=== PATIENT | male | born 1955 | race African-American/Black ===

== ENCOUNTER 2017-04-22 13:31 | Observation (INO) | payer MEDICAID, OTHER ==
[~2017-04-22] VITALS: Ht 188 cm; Wt 91.4 kg
[2017-04-22 13:45] VITALS: BP 179/81; PULSE 92; RESP 14; TEMP 97.9; O2SAT 95
[2017-04-22] MEDS ORDERED: TAMS0.4C4 PO (15:08)
[2017-04-22] MEDS ORDERED: NAPR250T4 PO (15:08)
[2017-04-22] MEDS ORDERED: KETOROLAC TROMETHAMINE 30 MG/ML (IVP) VIAL IV PUSH ONE (16:15)
[2017-04-22] MEDS ORDERED: HYDROmorphone HCL PF 2 MG/ML VIAL IV PUSH ONE (16:15)
--- NOTE | 2017-04-22 16:51 | PD ---
HPI Chief Complaint: Back/ Neck Pain or Injury Time Seen by Provider: 15:58 Travel History International Travel<30 days: No Contact w/Intl Traveler<30days: No Traveled to known affect area: No History of Present Illness HPI This is a 62-year-old male who presents to the emergency department with 4 days of left-sided low back pain, constant, severe, nonradiating, worse with movement and improved with rest. He says he's never had pain like this before. He does suffer from arthritis in his knees and his shoulders for which she takes naproxen but he hasn't had much relief. He denies any numbness or weakness and denies any bowel or bladder incontinence. He does have an enlarged prostate making his stream difficult but he is taking medication for this. PFSH Past Medical History Arthritis: Yes (KNEES, SHOULDERS, RIGHT HIP ) Medical other: Yes (PROSTATE ) Past Surgical History Other Surgery: Yes (KNEE SURGERY ) Social History Alcohol Use: Yes (STATES HE DRINKS A LITTLE ) Tobacco Use: Yes (1/2 PACK A DAY ) Substance Use: No Allergies-Medications (Allergen,Severity, Reaction): Coded Allergies: No Known Allergies (Verified Allergy, Unknown, 04/22/17) Reported Meds & Prescriptions Reported Meds & Active Scripts Active Reported Tamsulosin (Tamsulosin HCl) 0.4 Mg Cap 0 PO HS Naproxen 250 Mg Tab 250 Mg PO BID Review of Systems Except as stated in HPI: all other systems reviewed are Neg Physical Exam Narrative GENERAL:Well appearing, no acute distress SKIN: Focused skin assessment warm and dry. HEAD: Atraumatic. Normocephalic. EYES: Pupils equal and round. No injection or drainage. ENT: Moist mucous membranes NECK: Trachea midline. CARDIOVASCULAR: Regular rate and rhythm. No murmur appreciated. Feet are warm with normal capillary refill. RESPIRATORY: Clear to auscultation. Breath sounds equal bilaterally. GASTROINTESTINAL: Abdomen soft, non-tender, nondistended. MUSCULOSKELETAL: Pain with leg raise of both the right and the left leg. Tender to palpation over the lumbar paraspinal muscles on the left. NEUROLOGICAL: Awake and alert. No obvious cranial nerve deficits. 5 out of 5 strength in the bilateral lower extremities. PSYCHIATRIC: Appropriate mood and affect; insight and judgment normal. Data Data Last Documented VS Vital Signs Date Time Temp Pulse Resp B/P (MAP) Pulse Ox O2 Delivery O2 Flow Rate FiO2 04/22/17 13:45 97.9 92 14 179/81 (113) 95 Orders Orders Complete Blood Count With Diff (04/22/17 16:06) Comprehensive Metabolic Panel (04/22/17 16:06) ^ Insert Iv (04/22/17 16:06) Ketorolac Inj (Toradol Inj) (04/22/17 16:15) Hydromorphone Pf Inj (Dilaudid Pf Inj) (04/22/17 16:15) Ct Abd/Pel W/O Iv Contrast (04/22/17 ) Ct Lumb Spine W/O Contrast (04/22/17 ) MDM Medical Decision Making Medical Screen Exam Complete: Yes Emergency Medical Condition: Yes Interpretation(s) Afebrile, mild tachycardia, hypertensive Differential Diagnosis Herniated disc, degenerative disc disease, sacroiliitis, kidney stone, compression fracture, malignancy Narrative Course This is a 62-year-old male who presents to the emergency department with severe low back pain that's been worsening over the past 3 days. He has no red flags for cauda equina syndrome. He was placed on a monitor and an IV was established. Labs will be obtained and he will be given pain control. CT imaging will be obtained of the low back as well as the abdomen and pelvis to evaluate for possible kidney stone although his pain seems more musculoskeletal to me. If the patient's pain is persistent he may require observation for pain control and physical therapy evaluation Coni Wolf MD Apr 22, 2017 16:51
[2017-04-22 16:59] LABS: AUTOMATED NEUTROPHIL # 2.4 TH/MM3 (1.8-7.7); BASOPHIL % 0.4 % (0.0-2.0); EOSINOPHIL % 0.2 % (0.0-4.0); HEMATOCRIT 42.6 % (39.0-51.0); HEMOGLOBIN 14.6 GM/DL (13.0-17.0); LYMPH % 24.1 % (9.0-44.0); MEAN CELL VOLUME 99.4 FL (80.0-100.0); MEAN CORPUSCULAR HEMOGLOBIN 34.1 PG (27.0-34.0); MEAN CORPUSCULAR HGB CONC 34.3 % (32.0-36.0); MEAN PLATELET VOLUME 8.9 FL (7.0-11.0); MONO % 13.4 % (0.0-8.0); MONOCYTE # 0.5 TH/MM3 (0-0.9); NEUT % 61.9 % (16.0-70.0); PLATELET COUNT 150 TH/MM3 (150-450); RED BLOOD COUNT 4.29 MIL/MM3 (4.50-5.90); RED CELL DISTRIBUTION WIDTH 13.7 % (11.6-17.2)
[2017-04-22 17:16] LABS: ALBUMIN 3.7 GM/DL (3.4-5.0); AST (GOT) 45 U/L (15-37); BICARBONATE 30.5 MEQ/L (21.0-32.0); BLOOD UREA NITROGEN 12 MG/DL (7-18); CHLORIDE 102 MEQ/L (98-107); CREATININE 0.84 MG/DL (0.60-1.30); GLOMERULAR FILTRATION RATE 112 ML/MIN (>89); GLUCOSE,RANDOM 97 MG/DL (74-106); SODIUM (NA) 138 MEQ/L (136-145)
[2017-04-22 17:19] LABS: ALKALINE PHOSPHATASE 55 U/L (45-117); ALT (GPT) 34 U/L (12-78); TOTAL BILIRUBIN ADULT 1.2 MG/DL (0.2-1.0); TOTAL PROTEIN 8.6 GM/DL (6.4-8.2)
--- NOTE | 2017-04-22 17:27 | RADRPT ---
EXAM DATE/TIME: 04/22/2017 17:06 [facility] COMPARISON: No previous studies available for comparison. INDICATIONS : Left flank and left low back pain. ORAL CONTRAST: No oral contrast ingested. RADIATION DOSE: 13.88 CTDIvol (mGy) MEDICAL HISTORY : None SURGICAL HISTORY : None. ENCOUNTER: Initial ACUITY: 4 - 6 days PAIN SCALE: 10/10 LOCATION: Left flank TECHNIQUE: Volumetric scanning of the abdomen and pelvis was performed. Using automated exposure control and ad justment of the mA and/or kV according to patient size, radiation dose was kept as low as reasonably achievable to obtain optimal diagnostic quality images. DICOM format image data is available electro nically for review and comparison. FINDINGS: CT Abdomen: The liver, spleen, pancreas, kidneys, adrenals are unremarkable. There is no evidence for any stones in the kidneys or the course of the ureters on either side. There is no hydronephrosis.Th ere is no evidence for any appreciable pathological adenopathy, free fluid, or bowel obstruction. 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 Questionable gallstone s are present. CT pelvis: There is no evidence for mass, abscess formation, or any significant adenopathy within the pelvis. The prostate gland is inhomogeneous and measures 4.2 x 5.0 cm in AP and transverse diameters and nonspecific. Subcentimeter bone island is present in the left ischium. There are degenerative ch anges and possible bulging discs in the lower lumbosacral spine not adequately characterized. CONCLUSION: Possible gallstones. Harrison Bowling MD on April 22, 2017 at 17:21 Board Certified Radiologist. This report was verified electronically.
--- NOTE | 2017-04-22 17:44 | RADRPT ---
EXAM DATE/TIME: 04/22/2017 17:06 [facility] COMPARISON: No previous studies available for comparison. INDICATIONS : Left low back pain. RADIATION DOSE: ; Reconstructed from previous dataset, no dose MEDICAL HISTORY : None SURGICAL HISTORY : None. ENCOUNTER: Initial ACUITY: 4 - 6 days PAIN SCALE: 10/10 LOCATION: Left low back TECHNIQUE: Volumetric scanning of the lumbar spine was performed. Multiplanar reconstructions in the sagittal, coronal and oblique axial planes were performed. Using automated exposure control and adjustment of the mA and/or kV according to patient size, radiation dose was kept as low as reasonably achievable t o obtain optimal diagnostic quality images. DICOM format image data is available electronically for review and comparison. FINDINGS: No significant compression deformities, spondylolisis, or spondylolesthesis is seen. L1 transverse pr ocess on the right side appears not fused on a congenital basis. Moderate degree of facet hypertrophy is present at L4-5 and L5-S1 bilaterally. T12-L1: There is no evidence for any significant compromise to the thecal sac, or the exiting nerve roots. N o appreciable thecal sac stenosis is seen. The neural foramina and lateral recess appear patent bila terally. L1-L2: There is no evidence for any significant compromise to the thecal sac, or the exiting nerve roots. N o appreciable thecal sac stenosis is seen. The neural foramina and lateral recess appear patent bila terally. L2-L3: There is no evidence for any significant compromise to the thecal sac, or the exiting nerve roots. N o appreciable thecal sac stenosis is seen. The neural foramina and lateral recess appear patent bila terally. L3-L4: There is no evidence for any significant compromise to the thecal sac, or the exiting nerve roots. N o appreciable thecal sac stenosis is seen. The neural foramina and lateral recess appear patent bila terally. L4-L5: There is slight neural foramina compromise bilaterally due to bulging disc and hypertrophic changes. Slight bulging disc and hypertrophic changes are seen with indentation on the thecal sac and no signi ficant compromise to the thecal sac. L5-S1: There is slight neural foramina compromise bilaterally due to bulging disc and hypertrophic changes. Slight bulging disc and hypertrophic changes are seen with indentation on the thecal sac and no signi ficant compromise to the thecal sac. CONCLUSION: Slight neural foramina compromise bilateral L4-5 and bilateral L5-S1 without any significant thecal s ac stenosis. Harrison Bowling MD on April 22, 2017 at 17:37 Board Certified Radiologist. This report was verified electronically.
[2017-04-22] MEDS ORDERED: CYCLOBENZAPRINE HCL 10 MG TAB PO ONE (18:30)
[2017-04-22] MEDS ORDERED: NALOXONE HCL 0.4 MG/ML AMP IV PUSH PRN (18:45)
[2017-04-22 20:00] VITALS: BP 136/70; PULSE 82; RESP 21; TEMP 96.2; O2SAT 94
--- NOTE | 2017-04-22 20:00 | PD ---
Physical Exam Narrative Patient signed out to by Dr. Wolf. Please see her documentation for complete details. Briefly, Patient is a 62-year-old male who comes in complaining of left-sided pain started 3 days ago, suddenly. He denies any known injury. He was given pain medicine prior to my arrival, but he says this is not helping. Exam shows tenderness to the left sacroiliac area. Data Data Last Documented VS Vital Signs Date Time Temp Pulse Resp B/P (MAP) Pulse Ox O2 Delivery O2 Flow Rate FiO2 04/22/17 17:45 16 04/22/17 13:45 97.9 92 179/81 (113) 95 Orders Orders Complete Blood Count With Diff (04/22/17 16:06) Comprehensive Metabolic Panel (04/22/17 16:06) ^ Insert Iv (04/22/17 16:06) Ketorolac Inj (Toradol Inj) (04/22/17 16:15) Hydromorphone Pf Inj (Dilaudid Pf Inj) (04/22/17 16:15) Ct Abd/Pel W/O Iv Contrast (04/22/17 ) Ct Lumb Spine W/O Contrast (04/22/17 ) Cyclobenzaprine (Flexeril) (04/22/17 18:30) Admit Order (Ed Use Only) (04/22/17 ) Place In Observation (04/22/17 ) Vital Signs (Adult) Q4H (04/22/17 18:39) Activity Oob With Assistance (04/22/17 18:39) Bilingual Office Assistant / Telemetry .CONTINUOUS (04/22/17 18:39) Diet Heart Healthy (04/22/17 Dinner) Sodium Chloride 0.9% Flush (Ns Flush) (04/22/17 18:45) Sodium Chloride 0.9% Flush (Ns Flush) (04/22/17 21:00) Pt Request For Service (04/22/17 18:39) Case Management Consult (04/22/17 18:39) Naloxone Inj (Narcan Inj) (04/22/17 18:45) Labs Laboratory Tests Test 04/22/17 14:20 White Blood Count 4.0 TH/MM3 Red Blood Count 4.29 MIL/MM3 Hemoglobin 14.6 GM/DL Hematocrit 42.6 % Mean Corpuscular Volume 99.4 FL Mean Corpuscular Hemoglobin 34.1 PG Mean Corpuscular Hemoglobin Concent 34.3 % Red Cell Distribution Width 13.7 % Platelet Count 150 TH/MM3 Mean Platelet Volume 8.9 FL Neutrophils (%) (Auto) 61.9 % Lymphocytes (%) (Auto) 24.1 % Monocytes (%) (Auto) 13.4 % Eosinophils (%) (Auto) 0.2 % Basophils (%) (Auto) 0.4 % Neutrophils # (Auto) 2.4 TH/MM3 Lymphocytes # (Auto) 1.0 TH/MM3 Monocytes # (Auto) 0.5 TH/MM3 Eosinophils # (Auto) 0.0 TH/MM3 Basophils # (Auto) 0.0 TH/MM3 CBC Comment DIFF FINAL Differential Comment Blood Urea Nitrogen 12 MG/DL Creatinine 0.84 MG/DL Random Glucose 97 MG/DL Total Protein 8.6 GM/DL Albumin 3.7 GM/DL Calcium Level 9.0 MG/DL Alkaline Phosphatase 55 U/L Aspartate Amino Transf (AST/SGOT) 45 U/L Alanine Aminotransferase (ALT/SGPT) 34 U/L Total Bilirubin 1.2 MG/DL Sodium Level 138 MEQ/L Potassium Level 3.8 MEQ/L Chloride Level 102 MEQ/L Carbon Dioxide Level 30.5 MEQ/L Anion Gap 6 MEQ/L Estimat Glomerular Filtration Rate 112 ML/MIN MDM Supervised Visit with KAREEM: No Narrative Course CT abdomen and pelvis as well as lumbar spine show no acute abnormalities, no reason for his pain. Patient states he is unable to walk. He refuses to get out of bed to try. He'll be admitted for intractable back pain. Diagnosis Primary Impression: Intractable back pain Admitting Information Admitting Physician Requests: Rosemarie Bentley MD Apr 22, 2017 20:00
[2017-04-22] MEDS ORDERED: MORPHINE SULFATE 2 MG/ML INJ IV PUSH PRN (20:30)
[2017-04-22] MEDS: SODIUM CHLORIDE 0.9% FLUSH 10 ML FLUSH IV FLUSH SCH (20:52)
[2017-04-22] MEDS: ACETAMINOPHEN/HYDROcodone 325 MG/7.5 MG TAB PO PRN (20:52)
--- NOTE | 2017-04-22 21:51 | HHI.HP ---
[facility] Service [facility] Primary Care Physician Israel Sumner MD Admission Diagnosis Intractable back pain, inability to walk Diagnoses: Chief Complaint: intractable low back pain Travel History International Travel<30 Days: No Contact w/Intl Traveler <30 Da: No Traveled to Known Affected Are: No History of Present Illness 62-year-old male with history of multiple joint osteoarthritis, BPH, tobacco use , presents with a four-day history of low back pain. Patient reports he has had this similar low back pain a few times in the past, most recently one year ago. He denies any prior trauma or injury to his lower back. He states approximately four days ago he woke up with the pain located at his left lumbar region with radiation into the left lateral hip, described as constant 10/10 throbbing pains, increases to a 13/10 sharp stabbing pain with any movement. Denies any distal lower extremity numbness, tingling, or weakness. He denies any saddle anesthesia or bladder/bowel incontinence. Denies any fevers or IV drug use. He states he walks with a cane at baseline due to his right hip arthritis however he has not been able to ambulate well over the past few days due to the pain. He has been taking naproxen that he was prescribed while in alf with no relief of pain. A friend told him that this could be gas pain so he started taking [id number] gas relief medications with no relief. He denies any abdominal pain, nausea/vomiting, or diarrhea/constipation. Since his arrival to the ER, CT abdomen/pelvis shows possible gallstones, and lumbar spine CT shows slight neural foraminal compromise bilaterally L4-5 and L5-S1 without any significant thecal sac stenosis. He was given Toradol, Dilaudid, and Flexeril in the ER however was still unable to ambulate therefore admitted to observation. Review of Systems Except as stated in HPI: all other systems reviewed are Neg Past Family Social History Past Medical History Osteoarthritis of knees, shoulders, and right hip BPH Past Surgical History Left knee arthroscopy 2 Right knee arthroscopy 1 Reported Medications Tamsulosin (Tamsulosin HCl) 0.4 Mg Cap 0 PO HS Naproxen 250 Mg Tab 250 Mg PO BID Allergies: Coded Allergies: No Known Allergies (Verified Allergy, Unknown, 04/22/17) Active Ordered Medications Current Medications Medications (Trade) Dose Ordered Sig/Loren Route Start Time Stop Time Status Last Admin (NS Flush) 2 ml UNSCH PRN IV FLUSH 04/22/17 18:45 (NS Flush) 2 ml BID IV FLUSH 04/22/17 21:00 04/22/17 20:52 (Narcan Inj) 0.4 mg UNSCH PRN IV PUSH 04/22/17 18:45 ([place] 5-325 Mg) 1 tab Q4H PRN PO 04/22/17 20:30 ([place] 7.5-325 Mg) 1 tab Q4H PRN PO 04/22/17 20:30 04/22/17 20:52 (Morphine Inj) 4 mg Q3H PRN IV PUSH 04/22/17 20:30 (Flexeril) 10 mg Q8H PRN PO 04/22/17 21:00 Family History Mother with Alzheimer's Father with arthritis and stroke Social History Smokes tobacco, less than half pack per day since he was a teenager Drinks alcohol, 1 to 2 beers every few days Denies any illicit drug use Physical Exam Vital Signs Vital Signs Date Time Temp Pulse Resp B/P (MAP) Pulse Ox O2 Delivery O2 Flow Rate FiO2 04/22/17 18:51 04/22/17 17:45 16 04/22/17 17:45 16 04/22/17 13:45 97.9 92 14 179/81 (113) 95 Physical Exam GENERAL: Well-nourished, well-developed male patient in NAD. SKIN: Warm and dry. No rash. HEAD: Normocephalic. Atraumatic. EYES: Pupils equal and round. No scleral icterus. No injection or drainage. ENT: No nasal bleeding or discharge. Mucous membranes pink and moist. NECK: Supple. Trachea midline. CARDIOVASCULAR: Regular rate and rhythm. S1, S2 noted. No murmur appreciated. RESPIRATORY: No accessory muscle use. Clear to auscultation. Breath sounds equal bilaterally. GASTROINTESTINAL: Abdomen soft, non-tender, nondistended. Normoactive bowel sounds x4. MUSCULOSKELETAL: No obvious deformities. Extremities without clubbing, cyanosis , or edema. Entire gxisdkwx-bopteonc-hqcjyg spine without any bony point tenderness. Left lumbar paraspinous muscle tenderness to palpation with muscle spasm. 2+ bilateral dorsalis pedis pulses. NEUROLOGICAL: Awake and alert. No obvious cranial nerve deficits. Motor grossly within normal limits. 5/5 muscle strength in bilateral upper and lower extremities. Distal bilateral lower extremity sensation equal and intact. Normal speech. PSYCHIATRIC: Appropriate mood and affect; insight and judgment normal. Laboratory Laboratory Tests Test 04/22/17 14:20 White Blood Count 4.0 Red Blood Count 4.29 Hemoglobin 14.6 Hematocrit 42.6 Mean Corpuscular Volume 99.4 Mean Corpuscular Hemoglobin 34.1 Mean Corpuscular Hemoglobin Concent 34.3 Red Cell Distribution Width 13.7 Platelet Count 150 Mean Platelet Volume 8.9 Neutrophils (%) (Auto) 61.9 Lymphocytes (%) (Auto) 24.1 Monocytes (%) (Auto) 13.4 Eosinophils (%) (Auto) 0.2 Basophils (%) (Auto) 0.4 Neutrophils # (Auto) 2.4 Lymphocytes # (Auto) 1.0 Monocytes # (Auto) 0.5 Eosinophils # (Auto) 0.0 Basophils # (Auto) 0.0 CBC Comment DIFF FINAL Differential Comment Blood Urea Nitrogen 12 Creatinine 0.84 Random Glucose 97 Total Protein 8.6 Albumin 3.7 Calcium Level 9.0 Alkaline Phosphatase 55 Aspartate Amino Transf (AST/SGOT) 45 Alanine Aminotransferase (ALT/SGPT) 34 Total Bilirubin 1.2 Sodium Level 138 Potassium Level 3.8 Chloride Level 102 Carbon Dioxide Level 30.5 Anion Gap 6 Estimat Glomerular Filtration Rate 112 Result Diagram: 04/22/17 1420 04/22/17 1420 Imaging Last Impressions Lumbar Spine CT 04/22/17 0000 Signed Impressions: Service Date/Time: Saturday, April 22, 2017 17:06 - CONCLUSION: Slight neural foramina compromise bilateral L4-5 and bilateral L5-S1 without any significant thecal sac stenosis. Harrison Bowling MD Abdomen/Pelvis CT 04/22/17 0000 Signed Impressions: Service Date/Time: Saturday, April 22, 2017 17:06 - CONCLUSION: Possible gallstones. MD Chris Carlsoni VTE Risk Assessment Caprini VTE Risk Assessment: Mod/High Risk (score >= 2) Caprini Risk Assessment Model Point Value = 1 Point Value = 2 Point Value = 3 Point Value = 5 Age 41-60 Minor surgery BMI > 25 kg/m2 Swollen legs Varicose veins or History of unexplained or recurrent spontaneous Oral contraceptives or hormone replacement Sepsis (< 1 month) Serious lung disease, including pneumonia (< 1 month) Abnormal pulmonary function Acute myocardial infarction Congestive heart failure (< 1 month) History of inflammatory bowel disease Medical patient at bed rest Age 61-74 Arthroscopic surgery Major open surgery (> 45 min) Laparoscopic surgery (> 45 min) Malignancy Confined to bed (> 72 hours) Immobilizing plaster cast Central venous access Age >= 75 History of VTE Family history of VTE Factor V Leiden Prothrombin [id number] Lupus anticoagulant Anticardiolipin antibodies Elevated serum homocysteine Heparin-induced thrombocytopenia Other congenital or acquired thrombophilia Stroke (< 1 month) Elective arthroplasty Hip, pelvis, or leg fracture Acute spinal cord injury (< 1 month) Prophylaxis Regimen Total Risk Factor Score Risk Level Prophylaxis Regimen 0-1 Low Early ambulation 2 Moderate Order ONE of the following: *Sequential Compression Device (SCD) *Heparin 5000 units SQ BID 3-4 Higher Order ONE of the following medications: *Heparin 5000 units SQ TID *Enoxaparin/Lovenox 40 mg SQ daily (WT < 150 kg, CrCl > 30 mL/min) *Enoxaparin/Lovenox 30 mg SQ daily (WT < 150 kg, CrCl > 10-29 mL/min) *Enoxaparin/Lovenox 30 mg SQ BID (WT < 150 kg, CrCl > 30 mL/min) AND/OR *Sequential Compression Device (SCD) 5 or more Highest Order ONE of the following medications: *Heparin 5000 units SQ TID (Preferred with Epidurals) *Enoxaparin/Lovenox 40 mg SQ daily (WT < 150 kg, CrCl > 30 mL/min) *Enoxaparin/Lovenox 30 mg SQ daily (WT < 150 kg, CrCl > 10-29 mL/min) *Enoxaparin/Lovenox 30 mg SQ BID (WT < 150 kg, CrCl > 30 mL/min) AND *Sequential Compression Device (SCD) Assessment and Plan Problem List: (1) Inability to ambulate (2) Intractable back pain ICD Code: M54.9 - Dorsalgia, unspecified Status: Acute Assessment and Plan 62-year-old male with history of multiple joint osteoarthritis, BPH, tobacco use , presents with a four-day history of low back pain. Intractable low back pain with radiculopathy and inability to ambulate: Lumbar spine CT images reviewed, shows slight neural foraminal compromise bilaterally L4-5 and L5-S1 without any significant thecal sac stenosis. S/p Toradol, Dilaudid, and Flexeril in the ER with minimal relief and still unable to ambulate therefore admitted to observation. -Check lumbar spine MRI -Start on IV toradol 15mg q6h for inflammation -Flexeril 10mg q8h prn muscle spasm -Pain control with [place] prn and IV morphine prn breakthrough pain -K thermia prn -Consult PT for further evaluation Hypertension: BP 179/81. Patient denies history of hypertension and not on any antihypertensives. -Suspect elevated BP secondary to pain upon arrival, no repeat BP documented since -Control pain as above -Monitor BP, add antihypertensives as needed BPH: Chronic, stable -continue patient's tamsulosin Tobacco Abuse: chronic -counseled on cessation -patient declined nicotine patch at this time DVT Prophylaxis: Heparin sq Discussed Condition With Patient, RN Rose Diaz PA-C Apr 22, 2017 21:51
[2017-04-22] MEDS: TAMSULOSIN HCL 0.4 MG CAP PO SCH (22:30)
[2017-04-23] VITALS: BP 113/67; PULSE 89; RESP 21; TEMP 96; O2SAT 96
[2017-04-23] MEDS: KETOROLAC TROMETHAMINE 30 MG/ML (IVP) VIAL IV PUSH SCH ×4 (00:02→17:44)
[2017-04-23] MEDS: SODIUM CHLORIDE 0.9% FLUSH 10 ML FLUSH IV FLUSH PRN ×2 (00:02→06:22)
[2017-04-23] MEDS: ACETAMINOPHEN/HYDROcodone 325 MG/7.5 MG TAB PO PRN ×3 (00:59→12:19)
[2017-04-23] MEDS: HEPARIN SODIUM - SQ 10,000 UNITS/ML VIAL SQ SCH ×3 (06:18→22:32)
[2017-04-23] MEDS: SODIUM CHLORIDE 0.9% FLUSH 10 ML FLUSH IV FLUSH SCH ×2 (07:58→22:32)
[2017-04-23 08:00] VITALS: BP 109/55; PULSE 66; RESP 17; TEMP 96.7; O2SAT 94
--- NOTE | 2017-04-23 10:07 | RADRPT ---
EXAM DATE/TIME: 04/23/2017 08:19 [facility] COMPARISON: No previous studies available for comparison. INDICATIONS : Back pain radiating to left hip. No known injury. MEDICAL HISTORY : Hypertension. SURGICAL HISTORY : Bilateral knee repair. ENCOUNTER: Subsequent ACUITY: 2 day PAIN SCORE: 6/10 LOCATION: back. TECHNIQUE: Multiplanar multisequence MRI of the lumbar spine was performed without contrast. FINDINGS: Sagittal images demonstrate normal vertebral body alignment and curvature. No focal areas of marrow r eplacement are identified. The conus terminates normally. Axial images were performed from T12-L1 thr ough L5-S1. T12-L1: No significant abnormalities identified. L1-L2: No significant abnormalities identified. L2-L3: No significant abnormalities identified. L3-L4: No significant abnormalities identified. L4-L5: There is mild annular bulge of the disc. There is moderate facet arthritis bilaterally with ligamentu m flavum hypertrophy. There is mild left sided neural foraminal narrowing. L5-S1: There is no evidence of disc protrusion or spinal canal stenosis. There is mild facet arthritis on th e left. The neural foramina are clear bilaterally. CONCLUSION: 1. No evidence of disc protrusion or spinal canal stenosis. 2. Degenerative disc disease maximal at L4-L5 with associated facet arthritis and bilateral foraminal narrowing left greater than right Bc Spangler MD on April 23, 2017 at 10:02 Board Certified Radiologist. This report was verified electronically.
[2017-04-23 12:00] VITALS: BP 135/69; PULSE 77; RESP 17; TEMP 95.4; O2SAT 93
[2017-04-23] MEDS ORDERED: NAPR500T2 PO (13:54)
[2017-04-23] MEDS ORDERED: CYCL7.5T33 PO (13:54)
[2017-04-23] MEDS ORDERED: HYDR-3516 PO (13:54)
--- NOTE | 2017-04-23 14:24 | HHI.PR ---
Subjective Remarks complain of constipation Afebrile Objective Vitals Vital Signs Date Time Temp Pulse Resp B/P (MAP) Pulse Ox O2 Delivery O2 Flow Rate FiO2 04/23/17 12:00 95.4 77 17 135/69 (91) 93 04/23/17 08:00 96.7 66 17 109/55 (73) 94 04/23/17 00:00 96.0 89 21 113/67 (82) 96 04/22/17 20:00 96.2 82 21 136/70 (92) 94 04/22/17 18:51 04/22/17 17:45 16 04/22/17 17:45 16 I/O 04/22/17 04/22/17 04/22/17 04/23/17 04/23/17 04/23/17 07:00 15:00 23:00 07:00 15:00 23:00 Intake Total 350 ml 240 ml Output Total 350 ml Balance 350 ml 240 ml -350 ml Intake Oral 350 ml 240 ml Output Urine Total 350 ml # Voids 1 1 Result Diagram: 04/22/17 1420 04/22/17 1420 Objective Remarks GENERAL: This is a well-nourished, well-developed patient, in no apparent distress. CARDIOVASCULAR: Regular rate and rhythm without murmurs, gallops, or rubs. RESPIRATORY: Clear to auscultation. Breath sounds equal bilaterally. No wheezes , rales, or rhonchi. GASTROINTESTINAL: Abdomen soft, non-tender, nondistended. Normal active bowel sounds MUSCULOSKELETAL: Extremities without clubbing, cyanosis, or edema. NEURO: Alert & Oriented x4 to person, place, time, situation. Moves all ext x4 A/P Problem List: (1) Inability to ambulate (2) Intractable back pain ICD Code: M54.9 - Dorsalgia, unspecified Status: Acute Assessment and Plan 04/23/17: Complaint of constipation, will place on laxative regimen, continue pain management hopefully discharge today or tomorrow once pain is controlled 62-year-old male with history of multiple joint osteoarthritis, BPH, tobacco use , presents with a four-day history of low back pain. Intractable low back pain with radiculopathy and inability to ambulate: Lumbar spine CT images reviewed, shows slight neural foraminal compromise bilaterally L4-5 and L5-S1 without any significant thecal sac stenosis. S/p Toradol, Dilaudid, and Flexeril in the ER with minimal relief and still unable to ambulate therefore admitted to observation. - lumbar spine MRIReviewed by me showed no disc protrusion but arthritis -Start on IV toradol 15mg q6h for inflammation -Flexeril 10mg q8h prn muscle spasm -Pain control with [place] prn and IV morphine prn breakthrough pain -K thermia prn -Consult PT for further evaluation Hypertension: BP 179/81. Patient denies history of hypertension and not on any antihypertensives. -Suspect elevated BP secondary to pain upon arrival, no repeat BP documented since -Control pain as above -Monitor BP, add antihypertensives as needed BPH: Chronic, stable -continue patient's tamsulosin Tobacco Abuse: chronic -counseled on cessation -patient declined nicotine patch at this time DVT Prophylaxis: Heparin sq Charmaine Hopkins MD Apr 23, 2017 14:24
[2017-04-23 16:00] VITALS: BP 107/55; PULSE 73; RESP 17; TEMP 96.3; O2SAT 94
[2017-04-23] MEDS: CYCLOBENZAPRINE HCL 10 MG TAB PO PRN (17:44)
[2017-04-23] MEDS: ACETAMINOPHEN/HYDROcodone 325 MG/5 MG TAB PO PRN ×2 (18:43→22:35)
[2017-04-23] MEDS ORDERED: SENNOSIDES 8.6 MG TAB PO PRN (19:00)
[2017-04-23] MEDS ORDERED: BISACODYL 10 MG SUPP RECTAL PRN (19:00)
[2017-04-23] MEDS ORDERED: LACTULOSE SYRUP 20 GM/30 ML CUP PO PRN (19:00)
[2017-04-23] MEDS ORDERED: MAGNESIUM HYDROXIDE SUSP 30 ML CUP PO PRN (19:00)
[2017-04-23 20:00] VITALS: BP 141/79; PULSE 74; RESP 18; TEMP 96.7; O2SAT 95
[2017-04-23] MEDS: TAMSULOSIN HCL 0.4 MG CAP PO SCH (22:31)
[2017-04-23] MEDS: DOCUSATE SODIUM 50 MG/SENNA 8.6 MG TAB PO SCH (22:31)
[2017-04-24] VITALS: BP 119/70; PULSE 69; RESP 18; TEMP 96.9; O2SAT 95
[2017-04-24] MEDS: KETOROLAC TROMETHAMINE 30 MG/ML (IVP) VIAL IV PUSH SCH ×3 (01:02→12:00)
[2017-04-24] MEDS: SODIUM CHLORIDE 0.9% FLUSH 10 ML FLUSH IV FLUSH PRN (01:03)
[2017-04-24] MEDS: CYCLOBENZAPRINE HCL 10 MG TAB PO PRN (01:08)
[2017-04-24] MEDS: HEPARIN SODIUM - SQ 10,000 UNITS/ML VIAL SQ SCH (04:39)
[2017-04-24] MEDS: ACETAMINOPHEN/HYDROcodone 325 MG/5 MG TAB PO PRN (04:40)
[2017-04-24] MEDS: SODIUM CHLORIDE 0.9% FLUSH 10 ML FLUSH IV FLUSH SCH (07:58)
[2017-04-24] MEDS: DOCUSATE SODIUM 50 MG/SENNA 8.6 MG TAB PO SCH (07:58)
[2017-04-24 08:00] VITALS: BP 131/79; PULSE 66; RESP 16; TEMP 95.7; O2SAT 97
[2017-04-24] MEDS: ACETAMINOPHEN/HYDROcodone 325 MG/7.5 MG TAB PO PRN (10:53)
[2017-04-24 12:00] VITALS: BP 138/79; PULSE 89; RESP 18; TEMP 96.4; O2SAT 95
[2017-04-24] MEDS ORDERED: HYDR-3516 PO (13:33)
[2017-04-24] MEDS ORDERED: MOBI15TA PO (13:33)
--- NOTE | 2017-04-24 13:45 | HHI.PR ---
Objective Vitals Vital Signs Date Time Temp Pulse Resp B/P (MAP) Pulse Ox O2 Delivery O2 Flow Rate FiO2 04/24/17 12:00 96.4 89 18 138/79 (98) 95 04/24/17 08:00 95.7 66 16 131/79 (96) 97 04/24/17 00:00 96.9 69 18 119/70 (86) 95 04/23/17 20:00 96.7 74 18 141/79 (99) 95 04/23/17 16:00 96.3 73 17 107/55 (72) 94 I/O 04/23/17 04/23/17 04/23/17 04/24/17 04/24/17 04/24/17 07:00 15:00 23:00 07:00 15:00 23:00 Intake Total 240 ml 1320 ml 600 ml Output Total 350 ml 200 ml Balance 240 ml -350 ml 1120 ml 600 ml Intake Oral 240 ml 1320 ml 600 ml Output Urine Total 350 ml 200 ml # Voids 1 3 2 # Bowel Movements 0 Result Diagram: 04/22/17 1420 04/22/17 1420 A/P Problem List: (1) Inability to ambulate (2) Intractable back pain ICD Code: M54.9 - Dorsalgia, unspecified Status: Acute Charmaine Hopkins MD Apr 24, 2017 13:45
--- NOTE | 2017-04-29 16:14 | HHI.DS ---
Discharge Summary Admission Date Apr 22, 2017 at 18:40 Discharge Date: Apr 24, 2017 Admitting Diagnosis Intractable back pain, inability to walk (1) Inability to ambulate (2) Intractable back pain ICD Code: M54.9 - Dorsalgia, unspecified Status: Acute Procedures none Brief History - From Admission 62-year-old male with history of multiple joint osteoarthritis, BPH, tobacco use , presents with a four-day history of low back pain. Patient reports he has had this similar low back pain a few times in the past, most recently one year ago. He denies any prior trauma or injury to his lower back. He states approximately four days ago he woke up with the pain located at his left lumbar region with radiation into the left lateral hip, described as constant 10/10 throbbing pains, increases to a 13/10 sharp stabbing pain with any movement. Denies any distal lower extremity numbness, tingling, or weakness. He denies any saddle anesthesia or bladder/bowel incontinence. Denies any fevers or IV drug use. He states he walks with a cane at baseline due to his right hip arthritis however he has not been able to ambulate well over the past few days due to the pain. He has been taking naproxen that he was prescribed while in shelter with no relief of pain. A friend told him that this could be gas pain so he started taking [id number] gas relief medications with no relief. He denies any abdominal pain, nausea/vomiting, or diarrhea/constipation. Since his arrival to the ER, CT abdomen/pelvis shows possible gallstones, and lumbar spine CT shows slight neural foraminal compromise bilaterally L4-5 and L5-S1 without any significant thecal sac stenosis. He was given Toradol, Dilaudid, and Flexeril in the ER however was still unable to ambulate therefore admitted to observation. PE at Discharge GENERAL: This is a well-nourished, well-developed patient, in no apparent distress. CARDIOVASCULAR: Regular rate and rhythm without murmurs, gallops, or rubs. RESPIRATORY: Clear to auscultation. Breath sounds equal bilaterally. No wheezes , rales, or rhonchi. GASTROINTESTINAL: Abdomen soft, non-tender, nondistended. Normal active bowel sounds MUSCULOSKELETAL: Extremities without clubbing, cyanosis, or edema. NEURO: Alert & Oriented x4 to person, place, time, situation. Moves all ext x4 Hospital Course 62-year-old male with history of multiple joint osteoarthritis, BPH, tobacco use , presents with a four-day history of intractable low back pain with radiculopathy and inability to ambulate: Lumbar spine CT images reviewed, shows slight neural foraminal compromise bilaterally L4-5 and L5-S1 without any significant thecal sac stenosis. started on Toradol, Dilaudid, and Flexeril in the ER with minimal relief and still unable to ambulate therefore admitted to observation. lumbar spine MRIruled out disc herniation however he does have bilateral L4-L5 arthritis ,Consult PT . on the day of discharge I spent around 35 minutes educating patient about chronic back pain and its management, I gave him a printout as well, patient agreed all his questions answered to satisfactionalso patient was educated about smoking cessation [id number] encounter performed with the patient on discharge day, as well as physical exam, summary of hospitalization course and postdischarge plan has been D/W the patient. 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 Pt Condition on Discharge: Fair Discharge Disposition: Discharge Home Discharge Time: > 30 minutes Discharge Instructions DIET: Follow Instructions for: Heart Healthy Diet Activities you can perform: See Additionl Instruction Other Activity Instructions: Per physical therapy recommendation New Medications: Cyclobenzaprine (Flexeril) 7.5 Mg Tab 7.5 MG PO TID PRN for when necessary, #20 TAB 0 Refills Meloxicam (Mobic) 15 Mg Tab 15 MG PO DAILY for 10 Days, #10 TAB 0 Refills Hydrocodone/Acetaminophen (Hydrocodone-Acetamin 5-325 mg) 5 Mg-325 Mg Tablet 1 TAB PO Q4H PRN for pain, #25 TAB Continued Medications: Tamsulosin (Tamsulosin) 0.4 Mg Cap 0 PO HS for Manage Prostate Problems, #30 CAP 0 Refills Charmaine Hopkins MD Apr 29, 2017 16:13
== END 2017-04-24 14:08 | disposition home or self-care (01) ==
LOC: NEPD 13:31 → UNDOADMOB 18:40 → NEDA 18:40 → N07B 19:07 → UNDODISOB 04-24 14:08
PROVIDERS: ADMIT Hospitalist; ATTEND Hospitalist
DX: M51.16 Intervertebral disc disorders with radiculopathy, lumbar region (principal); M54.5 Low back pain; R26.2 Difficulty in walking, not elsewhere classified; M17.0 Bilateral primary osteoarthritis of knee; N40.0 Benign prostatic hyperplasia without lower urinary tract symptoms; M19.012 Primary osteoarthritis, left shoulder; M19.011 Primary osteoarthritis, right shoulder; M16.11 Unilateral primary osteoarthritis, right hip; F17.210 Nicotine dependence, cigarettes, uncomplicated; I10 Essential (primary) hypertension
CPT/HCPCS: 72131; 72148; 74176; 80053; 85025; 96372; 96374; 96375; 96376; 97110; 97112; 97530; 99285; G0378; J1170; J1644; J1885; J2270